=== PATIENT | male | born 1945 | race Caucasian/White ===

== ENCOUNTER 2024-01-21 09:59 | Emergency (ER) | payer OTHER, SELFPAY ==
[2024-01-21 10:22] VITALS: BP 200/100
--- NOTE | 2024-01-21 11:29 | ED.SKININJ ---
HPI-Injury
General
Chief Complaint: Skin Surface Trauma
Source: patient
Exam Limitations: none
Time Seen by Provider: 01/21/24 11:03
History of Present Illness-Injury
Initial Injury comments:
78-year-old male cut his left long finger using a pair of pruning jon today. Last tetanus unknown. No other complaint
Phy Exam
Physical Exam
Physical Exam:
General: Well-appearing male no acute respiratory distress
Skin: 1.5 cm transverse laceration distal volar portion left long finger
Musculoskeletal exam: Good range of motion left long finger
Neurologic: Good sensation left long finger
Course
Orders/Labs/Results
Orders:
Orders
01/21/24 11:29
Tetanus/Diphth/Acelpertussis [Adacel] 0.5 ml IM .ONCE ONE
Vital Signs
Initial and Last Documented VS:
Initial Vital Signs
Temp Pulse Resp BP Pulse Ox
98.6 F 102 16 200/100 98
01/21/24 10:22 01/21/24 10:22 01/21/24 10:22 01/21/24 10:22 01/21/24 10:22
Last Documented Vital Signs
Temp Pulse Resp BP Pulse Ox
98.6 F 102 16 200/100 98
01/21/24 10:22 01/21/24 10:22 01/21/24 10:22 01/21/24 10:22 01/21/24 10:22
MDM/Problems Addressed
Differential Diagnosis Includes:
Laceration left long finger without evidence of tendon or vascular involvement. The wound was cleansed copiously with saline anesthetized in a local fashion using 1% lidocaine and held in approximation with 5-0 Prolene sutures. This was done using
4 simple interrupted sutures. Tetanus vaccine updated. Finger was dressed and he was discharged
*Critical Care Note
Total Time (30-74mins, 75-104mins- exclusive of procedures): Not Applicable
ED Attending Note
-
Portions of this chart may have been created with voice recognition software.� Occasional wrong word or��sound alike� substitutions may have occurred due to the inherent limitations of voice recognition software.
Discharge Plan
Departure
Patient Disposition: Home (Routine Discharge)
Date of Disposition: 01/21/24
Time of Disposition: 11:31
Patient with high blood pressure during this ER visit?: No
Discharge Problem:
Laceration
Instructions: Laceration Repair With Stitches (DC)
Referrals:
Scar Morel, DO [Family Provider] -
Activity Restrictions/Additional Instructions:
Keep clean. Have sutures removed in 10 to 12 days. Return if needed otherwise
Discharge Date and Time
Print Language: KHMER
[2024-01-21] MEDS: ADACEL 0.5 ML IM (11:42)
== END 2024-01-21 11:55 | disposition home or self-care (01) ==
LOC: EMR 09:59
PROVIDERS: EMERGENCY PHYSICIAN Emergency Medicine; FAMILY PHYSICIAN Internal Medicine
DX: S61.213A Laceration without foreign body of left middle finger without damage to nail, initial encounter (principal); W27.8XXA Contact with other nonpowered hand tool, initial encounter; Z23 Encounter for immunization
CPT/HCPCS: 12001; 90471; 99282; 90715